=== PATIENT | male | born 1975 | race Caucasian/White ===

== ENCOUNTER 2019-06-17 15:42 | Emergency (ER) | payer BC ==
[2019-06-17 16:03] VITALS: BP 171/104; PULSE 57
[2019-06-17] MEDS ORDERED: Sodium Chloride 0.9% 10 ML Syringe FLUSH PRN (16:23)
[2019-06-17] MEDS ORDERED: Ondansetron 4 MG/2 ML SDV IVPUSH ONE (16:35)
[2019-06-17] MEDS ORDERED: Sodium Chloride 0.9% 1,000 ML IV ONE (16:35)
--- NOTE | 2019-06-17 16:37 | EDM.PDOC ---
ED HPI GENERAL MEDICAL PROBLEM - General Chief Complaint: Abdominal Pain Stated Complaint: STOMACH PAIN Time Seen by Provider: 06/17/19 16:11 Source of Information: Reports: Patient History Limitations: Reports: No Limitations - History of Present Illness INITIAL COMMENTS - FREE TEXT/NARRATIVE: She is an unfortunate 43-year-old male who presents emergency Department today with complaint of 3 days of abdominal pain and vomiting. Patient reports that he has progressively gotten worse and has not been able to keep anything down. Patient reports he has intermittent episodes of severe cramping in his abdomen is not having any pain at this time. Positive nausea positive vomiting no hematemesis no hematochezia and no melena patient reports his last bowel movement was normal was yesterday Abdominal Pain Score (Numeric/FACES): 8 - Related Data Allergies Allergy/AdvReac Type Severity Reaction Status Date / Time No Known Allergies Allergy Verified 06/17/19 16:03 Home Meds: Home Meds Cholecalciferol (Vitamin D3) [Vitamin D] 1,000 unit PO ACBRK 09/24/14 [History] Levothyroxine Sodium [Synthroid] 175 mcg PO ASDIRECTED 09/24/14 [History] Ondansetron [Zofran ODT] 4 mg PO TID PRN #8 tab.dis 06/17/19 [Rx] Past Medical History - Past Health History Medical/Surgical History: Denies Medical/Surgical History Social & Family History - Tobacco Use Smoking Status *Q: Current Every Day Smoker Years of Tobacco use: 2 Packs/Tins Daily: 0.5 - Caffeine Use Caffeine Use: Reports: Coffee - Recreational Drug Use Recreational Drug Use: No ED ROS GENERAL - Review of Systems Review Of Systems: See Below Constitutional: Denies: Fever, Chills GI/Abdominal: Reports: Abdominal Pain, Nausea, Vomiting. Denies: Constipation, Diarrhea ED EXAM, GI/ABD - Physical Exam Exam: See Below Exam Limited By: No Limitations General Appearance: Alert, WD/WN, Mild Distress Nose: Normal Inspection, Normal Mucosa, No Blood Throat/Mouth: Normal Inspection, Normal Lips, Normal Teeth, Normal Gums, Normal Oropharynx, Normal Voice, No Airway Compromise Head: Atraumatic, Normocephalic Neck: Normal Inspection, Supple, Non-Tender, Full Range of Motion Respiratory/Chest: No Respiratory Distress, Lungs Clear, Normal Breath Sounds, No Accessory Muscle Use, Chest Non-Tender Cardiovascular: Normal Peripheral Pulses, Regular Rate, Rhythm, No Edema, No Gallop, No JVD, No Murmur, No Rub, Irregularly Irregular GI/Abdominal Exam: Normal Bowel Sounds, Soft, Non-Tender, No Organomegaly Back Exam: Normal Inspection, Full Range of Motion, NT Extremities: Normal Inspection, Normal Range of Motion, Non-Tender, Normal Capillary Refill, No Pedal Edema Neurological: Alert Skin Exam: Warm, Dry, No Rash Course - Vital Signs Last Recorded V/S: Last Vital Signs Temp 97.7 F 06/17/19 15:59 Pulse 57 L 06/17/19 15:59 Resp 18 06/17/19 15:59 BP 171/104 H 06/17/19 15:59 Pulse Ox 98 06/17/19 15:59 - Orders/Labs/Meds Orders: Active Orders 24 hr Category Date Time Status Sodium Chloride 0.9% [Saline Flush] Med 06/17/19 16:23 Active 10 ml FLUSH ASDIRECTED PRN Saline Lock Insert [OM.PC] Stat Oth 06/17/19 16:27 Ordered Medication Orders Sodium Chloride (Saline Flush) 10 ml FLUSH ASDIRECTED PRN PRN Reason: Keep Vein Open Last Admin: 06/17/19 16:52 Dose: 10 ml Labs: Laboratory Tests 06/17/19 06/17/19 06/17/19 Range/Units 16:45 16:56 16:56 WBC 8.69 (4.23-9.07) K/mm3 RBC 5.19 (4.63-6.08) M/mm3 Hgb 16.0 (13.7-17.5) gm/dl Hct 46.1 (40.1-51.0) % MCV 88.8 (79.0-92.2) fl MCH 30.8 (25.7-32.2) pg MCHC 34.7 (32.2-35.5) g/dl RDW Std Deviation 40.4 (35.1-43.9) fL Plt Count 222 (163-337) K/mm3 MPV 9.9 (9.4-12.3) fl Neut % (Auto) 68.3 H (34.0-67.9) % Lymph % (Auto) 21.9 (21.8-53.1) % Robertson % (Auto) 8.4 (5.3-12.2) % Eos % (Auto) 1.2 (0.8-7.0) Baso % (Auto) 0.1 (0.1-1.2) % Neut # (Auto) 5.94 H (1.78-5.38) K/mm3 Lymph # (Auto) 1.90 (1.32-3.57) K/mm3 Robertson # (Auto) 0.73 (0.30-0.82) K/mm3 Eos # (Auto) 0.10 (0.04-0.54) K/mm3 Baso # (Auto) 0.01 (0.01-0.08) K/mm3 Sodium 137 (136-145) mEq/L Potassium 3.7 (3.5-5.1) mEq/L Chloride 101 (98-107) mEq/L Carbon Dioxide 26 (21-32) mEq/L Anion Gap 13.7 (5-15) BUN 11 (7-18) mg/dL Creatinine 1.3 (0.7-1.3) mg/dL Est Cr Clr Drug Dosing 85.19 mL/min Estimated GFR (MDRD) > 60 (>60) mL/min BUN/Creatinine Ratio 8.5 L (14-18) Glucose 104 (74-106) mg/dL Calcium 9.1 (8.5-10.1) mg/dL Total Bilirubin 0.8 (0.2-1.0) mg/dL AST 34 (15-37) U/L ALT 69 H (16-63) U/L Alkaline Phosphatase 60 (46-116) U/L Total Protein 7.4 (6.4-8.2) g/dl Albumin 4.1 (3.4-5.0) g/dl Globulin 3.3 gm/dL Albumin/Globulin Ratio 1.2 (1-2) Lipase 77 (73-393) U/L Urine Color Light yellow (Yellow) Urine Appearance Clear (Clear) Urine pH 7.0 (5.0-8.0) Ur Specific [place] 1.020 (1.005-1.030) Urine Protein Negative (Negative) Urine Glucose (UA) Negative (Negative) Urine Ketones Negative (Negative) Urine Occult Blood Trace-intact H (Negative) Urine Nitrite Negative (Negative) Urine Bilirubin Negative (Negative) Urine Urobilinogen 1.0 (0.2-1.0) Ur Leukocyte Esterase Negative (Negative) Urine RBC 0-5 (0-5) /hpf Urine WBC 0-5 (0-5) /hpf Ur Squamous Epith Cells 0-5 (0-5) /hpf Amorphous Sediment Few H (NOT SEEN) /hpf Urine Bacteria Few (FEW) /hpf Urine Mucus Not Reportable Meds: Medications Generic Name Dose Route Start Last Admin Trade Name Freq PRN Reason Stop Dose Admin Sodium Chloride 10 ml 06/17/19 16:23 06/17/19 16:52 Saline Flush FLUSH 10 ml ASDIRECTED PRN Administration Keep Vein Open Discontinued Medications Generic Name Dose Route Start Last Admin Trade Name Freq PRN Reason Stop Dose Admin Sodium Chloride 1,000 mls @ 1,000 mls/hr 06/17/19 16:35 06/17/19 16:51 Normal Saline IV 06/17/19 17:34 1,000 mls/hr ONETIME ONE Administration Ondansetron HCl 4 mg 06/17/19 16:35 06/17/19 16:52 Zofran IVPUSH 06/17/19 16:36 4 mg ONETIME ONE Administration - Re-Assessments/Exams Free Text/Narrative Re-Assessment/Exam: 06/17/19 18:51 She has had no further episodes of nausea no further episodes of vomiting and no abdominal pain we will discharge to home workup today is very reassuring have patient follow up outpatient with PCP Departure - Departure Time of Disposition: 18:52 Disposition: Home, Self-Care 01 Clinical Impression: Vomiting Qualifiers: Vomiting type: unspecified Vomiting Intractability: unspecified Nausea presence : unspecified Qualified Code(s): R11.10 - Vomiting, unspecified - Discharge Information Prescriptions: Ondansetron [Zofran ODT] 4 mg PO TID PRN #8 tab.dis PRN Reason: Vomiting Referrals: PCP,None [Primary Care Provider] - Forms: ED Department Discharge, ED Return to Work/School Form Additional Instructions: Home, rest, adequate fluids, return as needed for worsening condition Sepsis Event Note - Evaluation Sepsis Screening Result: No Definite Risk - Focused Exam Vital Signs: Vital Signs Temp Pulse Resp BP Pulse Ox 06/17/19 15:59 97.7 F 57 L 18 171/104 H 98 Date Exam was Performed: 06/17/19 Time Exam was Performed: 18:51 - My Orders Last 24 Hours: My Active Orders 06/17/19 16:23 Sodium Chloride 0.9% [Saline Flush] 10 ml FLUSH ASDIRECTED PRN 06/17/19 16:27 Saline Lock Insert [OM.PC] Stat - Assessment/Plan Last 24 Hours: My Active Orders 06/17/19 16:23 Sodium Chloride 0.9% [Saline Flush] 10 ml FLUSH ASDIRECTED PRN 06/17/19 16:27 Saline Lock Insert [OM.PC] Stat
== END 2019-06-17 19:05 | disposition home or self-care (01) ==
LOC: JD.ED 15:42
DX: R11.10 Vomiting, unspecified (principal); F17.210 Nicotine dependence, cigarettes, uncomplicated; Z79.899 Other long term (current) drug therapy
CPT/HCPCS: 36415; 80053; 81001; 83690; 85025; 96361; 96374; 99284; J2405; J7030; 99283

== ENCOUNTER 2021-04-24 18:49 | Emergency (ER) | payer BC ==
[2021-04-24 19:16] VITALS: BP 134/87; PULSE 73
[2021-04-24] MEDS ORDERED: Diphtheria,Pertussis(Acell),Tetanus Vaccine 0.5 ML Syringe IM ONE (19:19)
[2021-04-24] MEDS ORDERED: Lidocaine 1% 10 ML MDV INJECT ONE (19:19)
--- NOTE | 2021-04-24 19:20 | EDM.PDOC ---
ED HPI GENERAL MEDICAL PROBLEM - General Chief Complaint: Lower Extremity Injury/Pain Stated Complaint: KNEE LAC Time Seen by Provider: 04/24/21 19:14 Source of Information: Reports: Patient, RN Notes Reviewed History Limitations: Reports: No Limitations - History of Present Illness INITIAL COMMENTS - FREE TEXT/NARRATIVE: Patient is a 45-year-old male presenting to the emergency department with complaints of laceration to his right anterior knee. Reports he was cutting the valve stem off of a rim with utility knife and it slipped, causing laceration on his knee. He is unsure when his last tetanus vaccination was. Left Knee Pain Score (Numeric/FACES): 4 - Related Data Allergies Allergy/AdvReac Type Severity Reaction Status Date / Time No Known Allergies Allergy Verified 06/17/19 16:03 Home Meds: Home Meds Cholecalciferol (Vitamin D3) [Vitamin D] 1,000 unit PO ACBRK 09/24/14 [History] Levothyroxine Sodium [Synthroid] 175 mcg PO ASDIRECTED 09/24/14 [History] Past Medical History - Past Health History Medical/Surgical History: Denies Medical/Surgical History Endocrine/Metabolic History: Reports: Hypothyroidism - Infectious Disease History Infectious Disease History: Reports: None, Novel Coronavirus - Past Surgical History HEENT Surgical History: Reports: Tonsillectomy Social & Family History - Tobacco Use Tobacco Use Status *Q: Current Every Day Tobacco User Years of Tobacco use: 2 Packs/Tins Daily: 0.5 - Caffeine Use Caffeine Use: Reports: Coffee - Recreational Drug Use Recreational Drug Use: No Review of Systems - Review of Systems Review Of Systems: Comprehensive ROS is negative, except as noted in HPI. ED EXAM, GENERAL - Physical Exam Exam: See Below General Appearance: Alert, WD/WN, No Apparent Distress Respiratory/Chest: No Respiratory Distress, Lungs Clear, Normal Breath Sounds, No Accessory Muscle Use, Chest Non-Tender Cardiovascular: Normal Peripheral Pulses, Regular Rate, Rhythm, No Edema, No Gallop, No JVD, No Murmur, No Rub Extremities: Other (2 cm slightly gaping laceration to the proximal, anterior aspect of the right knee. No active bleeding.) Neurological: Alert, Oriented, CN II-XII Intact, Normal Cognition, Normal Gait, Normal Reflexes, No Motor/Sensory Deficits Psychiatric: Normal Affect, Normal Mood Skin Exam: Warm, Dry, Intact, Normal Color, No Rash ED TRAUMA EXTREMITY PROCEDURES - Laceration/Wound Repair Left Anterior Knee Lac/Wound Length In cm: 2 Appearance: Subcutaneous Anesthetic Type: Local Local Anesthesia - Lidocaine (Xylocaine): 1% Plain Local Anesthetic Volume: 2cc Skin Prep: Chlorhexidine (Hibiciens), Providone-Iodine (Betadine), Saline Exploration/Debridement/Repair: Wound Explored, In a Bloodless Field, No Foreign Material Found Closed With: [place] # of Sutures: 3 (dina) Sterile Dressing Applied: Nurse Tetanus Status Addressed: Yes Complications: No Course - Vital Signs Last Recorded V/S: Last Vital Signs Temp 98.8 F 04/24/21 19:14 Pulse 73 04/24/21 19:14 Resp 20 04/24/21 19:14 BP 134/87 04/24/21 19:14 Pulse Ox 99 04/24/21 19:14 - Orders/Labs/Meds Meds: Medications Discontinued Medications Generic Name Dose Route Start Last Admin Trade Name Freq PRN Reason Stop Dose Admin Diphtheria/Tetanus/Acell Pertussis 0.5 ml 04/24/21 19:19 04/24/21 19:23 Diphtheria,Pertussis(Acell),Tetanus Vaccine 0.5 Ml Syringe IM 04/24/21 19:20 0.5 ml .ONCE ONE Administration Lidocaine HCl 10 ml 04/24/21 19:19 04/24/21 19:23 Lidocaine 1% 10 Ml Mdv INJECT 04/24/21 19:20 10 ml ONETIME ONE Administration Departure - Departure Time of Disposition: 19:41 Disposition: Home, Self-Care 01 Condition: Good Clinical Impression: Laceration - Discharge Information *PRESCRIPTION DRUG MONITORING PROGRAM REVIEWED*: No *COPY OF PRESCRIPTION DRUG MONITORING REPORT IN PATIENT JOSE MIGUEL: No Instructions: Laceration Care, Adult Referrals: Dorothea Mathis NP [Primary Care Provider] - Forms: ED Department Discharge Additional Instructions: You were seen in the emergency department today for a laceration to your right knee . The wound was cleansed and closed with 3 dina. These should stay intact for 10 days. After that time they may be removed in the clinic by a nurse. Keep the wound clean and dry. Wash with normal soap and water twice daily. Do not submerge the wound in water. Watch for signs of infection including increased redness, swelling, or purulent drainage. If these should occur, you should be seen either in the clinic or in the emergency department as antibiotic treatment may be needed. Return to the ER as needed.
== END 2021-04-24 19:50 | disposition home or self-care (01) ==
LOC: JD.ED 18:49
DX: S81.012A Laceration without foreign body, left knee, initial encounter (principal); Z72.0 Tobacco use; Z79.899 Other long term (current) drug therapy; Z23 Encounter for immunization; W26.0XXA Contact with knife, initial encounter
CPT/HCPCS: 12001; 90471; 90715; 99282-25